=== PATIENT | female | born 1995 | race Two or more races ===

== ENCOUNTER → 2017-05-03 | Outpatient (CLI) | payer MEDICAID | LOC: FIMAGING 07:57 | DX: O09.32 Supervision of pregnancy with insufficient antenatal care, second trimester (principal); O99.322 Drug use complicating pregnancy, second trimester; Z3A.23 23 weeks gestation of pregnancy ==

== ENCOUNTER → 2017-07-24 | Outpatient (CLI) | payer MEDICAID | LOC: FIMAGING 14:15 | PROVIDERS: ATTEND Obstetrics & Gynecology | DX: O99.323 Drug use complicating pregnancy, third trimester (principal); Z3A.34 34 weeks gestation of pregnancy; F15.11 Other stimulant abuse, in remission; F17.211 Nicotine dependence, cigarettes, in remission ==